=== PATIENT | male | born 1940 | race Caucasian/White ===

== ENCOUNTER → 2017-06-22 | Outpatient (CLI) | payer MEDICARE, BC ==
[~2017-06-22] MED LIST: 1-ME1LIQ PO; ATOR80TA41 PO; CALTTAB PO; COZA50TA PO; FERR325T PO; GEMF600T PO; HYDR-3580 PO; RIVA10 PO; VITA-13 PO; Z.0.CPM; Z.0.WALKERFRONT
[2017-06-22 09:43] LABS: AUTOMATED NEUTROPHIL # 3.4 TH/MM3 (1.8-7.7); BASOPHIL # 0.1 TH/MM3 (0-0.2); BASOPHIL % 1.2 % (0.0-2.0); EOSINOPHIL # 0.1 TH/MM3 (0-0.4); EOSINOPHIL % 2.5 % (0.0-4.0); HEMATOCRIT 44.7 % (39.0-51.0); HEMOGLOBIN 15.1 GM/DL (13.0-17.0); LYMPH % 29.5 % (9.0-44.0); LYMPHOCYTE # 1.7 TH/MM3 (1.0-4.8); MEAN CELL VOLUME 81.4 FL (80.0-100.0); MEAN CORPUSCULAR HEMOGLOBIN 27.5 PG (27.0-34.0); MEAN CORPUSCULAR HGB CONC 33.8 % (32.0-36.0); MEAN PLATELET VOLUME 7.4 FL (7.0-11.0); MONO % 8.8 % (0.0-8.0); MONOCYTE # 0.5 TH/MM3 (0-0.9); PLATELET COUNT 258 TH/MM3 (150-450); RED BLOOD COUNT 5.49 MIL/MM3 (4.50-5.90); RED CELL DISTRIBUTION WIDTH 14.3 % (11.6-17.2); WHITE BLOOD COUNT 5.9 TH/MM3 (4.0-11.0)
[2017-06-22 10:23] LABS: BICARBONATE 28.8 MEQ/L (21.0-32.0); CALCIUM 9.5 MG/DL (8.5-10.1); CREATININE 0.95 MG/DL (0.60-1.30)
--- NOTE | 2017-06-22 20:41 | EKG ---
Date Performed: 06/22/2017 Time Performed: 09:41:20 PTAGE: 76 years EKG: Sinus rhythm . Left axis deviation RBBB with left anterior fascicular block Possible left ventricular hypertrophy Lateral T wave changes are probably due to ventricular hypertrophy Anterolater T wave changes, consid er ischemia Abnormal ECG NO PREVIOUS TRACING DOCTOR: Flo Dawson Interpretating Date/Time 06/22/2017 20:41:11
== END ==
LOC: CLAB 09:09
PROVIDERS: ATTEND Orthopaedic Surgery Orthopaedic Surgery of the Spine
DX: Z01.810 Encounter for preprocedural cardiovascular examination (principal); M25.50 Pain in unspecified joint; G56.02 Carpal tunnel syndrome, left upper limb
CPT/HCPCS: 36415; 80048; 85025; 93005